=== PATIENT | female | born 1985 | race Native Hawaiian/Other Pacific Islander ===

== ENCOUNTER 2017-02-19 06:42 | Day surgery (SDC) | payer OTHER ==
[2017-02-19] MEDS ORDERED: Midazolam 2 MG/2 ML VIAL ONE (08:13)
[2017-02-19] MEDS ORDERED: Propofol 10 mg/ml Inj (20 ML) ONE ×2 (08:13→08:31)
[2017-02-19] MEDS ORDERED: Lactated Ringer's 1,000 ML IV ONE ×2 (08:18→10:30)
[2017-02-19] MEDS ORDERED: ceFAZolin IV 2 gm in Dextrose 50 ML IVPB ONE (09:00)
[2017-02-19] MEDS: HYDROmorphone 0.5 mg/0.5 ml ISec IVP PRN ×2 (09:20→09:30)
[2017-02-19] MEDS ORDERED: HYDROmorphone 0.5 mg/0.5 ml ISec ONE (09:31)
--- NOTE | 2017-02-19 11:51 | OP ---
PROCEDURE DATE: 02/19/2017 PREOPERATIVE DIAGNOSES: Right wrist: 1. Displaced distal radius fracture. 2. Displaced ulnar styloid fracture. POSTOPERATIVE DIAGNOSES: Right wrist: 1. Displaced extraarticular distal radius fracture. 2. Displaced ulnar styloid fracture. PROCEDURE: Right wrist: 1. Closed reduction of distal radius fracture. 2. Placement in well-padded long arm cast (bivalved). 3. Examination of scapholunate ligament. SURGEON: Nii Ibrahim MD. SAVE ALL OPERATOR: None. ANESTHESIA: IV sedation. COMPLICATIONS: None. SPECIMENS: None. DRAINS: None. TOURNIQUET TIME: Zero minutes/not used. SPECIMENS: None. DISPOSITION: The patient was awakened from IV sedation and transferred to PACU in stable condition and tolerated the procedure well. INDICATIONS FOR SURGERY: The patient is a 31-year-old female with no significant past medical history who is right-hand dominant, who presented to the office for the first time on 02/18/2017 at [facility] under my care with right much worse than left wrist pain for 3 days. The patient stated that on 02/15/2017, she tripped over a toy that belonged to her at home and landed on her right upper extremity outstretched, resulting in immediate 10/ 10 pain localized to the right wrist/distal radius with swelling and deformity and inability to use the right upper extremity. She also landed on her left wrist, resulting in a less severe pain rated 4/10. Her took her to an urgent care locally. She was diagnosed with a right wrist distal radius fracture and placed in a splint. She was instructed to follow up with an orthopedic surgeon. The left wrist was not examined at that point in time. In the office on physical exam, she had an obvious deformity at the distal radius with dorsal angulation of the radiocarpal joint and distal radius articular surface. The x-rays taken in the office showed a displaced distal radius fracture with intra-articular extension and loss of radial height and volar tilt with actual dorsal angulation of the radiocarpal joint/distal radius articular surface. There was also a displaced radial styloid fracture. The left wrist clinically had D'Quervian's tenosynovitis and was treated in a thumb spica brace. She was also referred for MRI Left wrist to rule out stress fracture. I reviewed the x-rays at length with the patient and her , and they understood the nature of her injury, as well as the displacement of the fracture. She was indicated for an attempt at a closed reduction to try to maximize her chance of successful conservative treatment with good outcome. An attempt at a closed reduction was carried out in the office on 02/18/2017, which was unsuccessful, as the patient did not tolerate the pain. At that point in time, we continued with placement of a well-padded long arm/sugar tong splint, and the patient was scheduled for the next morning at [facility] for a closed reduction under sedation. The risks, benefits, and alternatives of procedure were discussed at length with the patient with the risks including but not limited to malunion, nonunion , neurovascular damage, development of cast complications, development of blood clots including DVT and PE, development of chronic pain and disability, failure of fracture reduction and need for further surgery, anesthesia reactions including . After answering all their questions, the patient and her understood the risks and wished to proceed with the procedure. We also discussed the role of open reduction and internal fixation and her treatment, and the possibility of failure of the reduction immediately in the same setting in the OR, and conversion to open reduction and internal fixation, and the patient and her were not ready for that treatment plan at that point in time, and decided that they would only consent for closed reduction, even if the closed reduction did not work. With that in mind, our surgical plan was to proceed with a closed reduction and placement in a long arm cast that was well-padded, all to be done under sedation, and to monitor the fracture reduction closely over the next few weeks. If the fracture reduction indeed does fail, then she will be indicated for open reduction and internal fixation. If the fracture reduction is not successful from the attempt at a closed reduction, then I would review the images after the procedure with the patient and her , and discuss further treatment as indicated. The patient was referred to Dr. Vick Zamora, a local primary care physician for preadmission testing, and the procedure was scheduled. The patient is also currently and we spent a long time discussing the need for withholding from while she is taking narcotic pain medication. She stated that she understood the risk to the baby and agreed to stop until she stopped using the narcotic pain medication. PROCEDURE IN DETAIL: The patient was identified in the preoperative holding area, and the right wrist was marked for surgery. The risks, benefits, and alternatives of the procedure were discussed at length with the patient and her as described above once again, and informed consent was obtained. We also discussed that at the same time, we would evaluate the scapholunate ligament, as well as take x-rays of the contralateral wrist to compare to our reduction/injured side. After a brief discussion with anesthesia staff, the patient was brought to the OR and placed on a well-padded operating room table. Final timeout was done with the surgeon, anesthesia staff, and OR staff - all in agreement with the patient, procedure being done, and extremity being operated on. IV sedation was administered without difficulty or complication. With the help of fluoroscopic imaging, pre-reduction images were taken of the right wrist. A closed reduction was then carried out. The distal radius fracture had significant inherent instability. A near anatomic reduction of the distal radius with rastafari of distal radius height, radial tilt, and volar tilt was carried out. Images of the contralateral wrist were taken to compare both the scapholunate ligament stability/ SL interval, under scapholunate ligament stress views, as well as the rastafari/reduction of the distal radius fracture. There was a successful anatomic reduction of the right distal radius fracture compared to the contralateral wrist anatomy, and there did not appear to be any significant difference in the scapholunate interval between the 2 wrists on SL stress views. While the right upper extremity/wrist was held in traction and with the help of assistants in the room, a well-padded long arm cast was placed while maintaining the fracture reduction. Biplanar flouro imaging was used to confirm maintenance of the fracture reduction during casting. A good mold was placed to maintain the fracture reduction. Final images confirmed maintenance of an anatomic reduction of the distal radius fracture in a well-padded long arm cast. The patient tolerated procedure well. At that point in time, the patient was awakened from IV sedation after the cast hardened, and was transferred to the PACU in stable condition. The patient was evaluated in PACU, and with a cast saw, the cast was bivalved to allow for swelling and comfort. An overlying layer of Cuco wrap was placed. The patient was instructed to keep the right wrist elevated and above the level of her heart as much as possible. She was instructed to be strict nonweightbearing to the right upper extremity and was instructed on cast care. She was given a prescription for Percocet for pain control. She has just delivered a 2-month-old baby and is in the process of breast feeding. Once again, I advised her to not breast feed. She will follow up in the office at [facility] within 1 week and already has a postoperative appointment. We will take repeat x-rays of the right wrist while it is in the cast and determine if the fracture reduction is holding. Nii Ibrahim MD cc: [id number] TT: 02/19/2017 11:51:13 jn MTDD
[2017-02-19 13:59] VITALS: BP 105/68; PULSE 58; RESP 18; TEMP 97.9; O2SAT 99
--- NOTE | 2017-02-19 16:49 | RAD ---
PROCEDURE: Intraoperative fluoroscopy HISTORY: RT. WRIST FX. COMPARISON: Not available TECHNIQUE: Intraoperative fluoroscopy was provided for close reduction of a distal radial fracture. Total time of fluoroscopy was 181.2 seconds. FINDINGS: One 1 fluoroscopic spot films are submitted. Films are on file for review. IMPRESSION: Fluoroscopy provided.
== END 2017-02-19 13:00 | disposition home or self-care (01) ==
LOC: C.SDS 06:42
PROVIDERS: ATTEND Student in an Organized Health Care Education/Training Program
DX: S52.551A Other extraarticular fracture of lower end of right radius, initial encounter for closed fracture (principal); S52.611A Displaced fracture of right ulna styloid process, initial encounter for closed fracture; X58.XXXA Exposure to other specified factors, initial encounter; Y92.9 Unspecified place or not applicable
CPT/HCPCS: 25605; J0131; J1170; J2250; J2405; J2704; J3010; J7120